=== PATIENT | female | born 1985 | race Caucasian/White ===

== ENCOUNTER 2016-10-21 16:50 | Emergency (ER) | payer BC ==
[~2016-10-21] VITALS: Ht 157.5 cm; Wt 63.4 kg
[~2016-10-21 16:50] MED LIST: LO LOESTRIN FE1 EACH PO; NAPROSYN500 MG PO; ULTRACET1 TABLET PO
[2016-10-21 17:26] LABS: ADD MIUA? YES; BILIRUBIN NEGATIVE; BLOOD NEGATIVE; COLOR YELLOW ((YELLOW)); GLUCOSE (STRIP) NEGATIVE; KETONES NEGATIVE; LEUKOCYTES NEGATIVE; NITRITE NEGATIVE; PROTEIN (STRIP) NEGATIVE; SPECIFIC GRAVITY 1.011 (1.000-1.030); UROBILINOGEN 0.2 MG/DL (0.2-1.0)
[2016-10-21 17:29] LABS: BACTERIA NONE SEEN /HPF; EPITHELIAL CELLS 1+ /HPF; MUCUS TRACE /LPF; RED BLOOD CELLS 0-5 /HPF (0-5); WHITE BLOOD CELLS 0-5 /HPF (0-5)
[2016-10-21 19:15] LABS: HEMATOCRIT 47.1 % (36.0-46.0); MCH 29.5 PG (29.0-34.0); MCV 86.9 FL (83-99); MEAN PLAT.VOLUME 10.1 uM^3 (9.5-12.4); PLATELET COUNT 230 K/uL (156-360); RBC DIS.WIDTH-CV 13.2 % (11.8-14.6); RBC DIS.WIDTH-SD 41.6 % (39-53); RED BLOOD COUNT 5.42 M/uL (3.80-5.20); WHITE BLOOD COUNT 11.7 K/uL (4.1-10.2)
[2016-10-21 19:25] LABS: CHLORIDE 106 mEq/L (99-109); POTASSIUM 4.4 mEq/L (3.7-5.4); SODIUM 141 mEq/L (136-147)
[2016-10-21 19:27] LABS: GLUCOSE 84 mg/dL (70-99)
[2016-10-21 19:28] LABS: ANION GAP 15 MEQ/L (2-14)
[2016-10-21 19:30] LABS: GFR ESTIMATE (CALCULATED) > 59 mL/min/
[2016-10-21 19:31] LABS: UREA NITROGEN (BUN) 9 mg/dL (9-23)
[2016-10-21 19:45] LABS: QUANTITATIVE HCG < 4.0 MIU/ML
[2016-10-21] MEDS ORDERED: ANTIVERT25 MG PO (20:46)
[2016-10-21] MEDS ORDERED: MOTRIN800 MG PO (20:46)
[2016-10-21] MEDS ORDERED: FIORICET 50-301 EACH PO (20:46)
[2016-10-21] MEDS ORDERED: VALIUM2 MG PO (20:46)
[2016-10-21] MEDS ORDERED: MUCINEX D ER T1 EACH PO (21:02)
[2016-10-21 21:10] VITALS: BP 146/110
== END 2016-10-21 21:16 | disposition home or self-care (01) ==
LOC: EME 16:50
DX: H65.91 Unspecified nonsuppurative otitis media, right ear (principal); R42 Dizziness and giddiness; R03.0 Elevated blood-pressure reading, without diagnosis of hypertension; G44.209 Tension-type headache, unspecified, not intractable; M62.830 Muscle spasm of back; F17.200 Nicotine dependence, unspecified, uncomplicated
CPT/HCPCS: 71020; 80048; 81003; 84702; 85027; 93005; 99281; 99284